=== PATIENT | female | born 1980 | race Caucasian/White ===

== ENCOUNTER 2016-11-14 15:34 | Emergency (ER) | payer MEDICAID, OTHER ==
[~2016-11-14] VITALS: Ht 167.6 cm; Wt 98.0 kg
[~2016-11-14 15:34] MED LIST: CYCL-36 PO; LORTA5 PO
[2016-11-14 15:37] VITALS: BP 123/73; PULSE 85; RESP 16; TEMP 98.3; O2SAT 98
[2016-11-14 16:09] LABS: BLOOD, URINE NEG (NEG); GLUCOSE,URINE NEG (NEG); KETONE, URINE NEG (NEG); NITRITE,URINE NEG (NEG)
[2016-11-14 16:14] LABS: METHOD OF COLLECTION CLEAN CATCH; URINE COLOR YELLOW (YELLW/STRAW)
[2016-11-14 16:15] LABS: BACTERIA, URINE MOD /hpf; COMMENT (UR) CULTURE INDICATED; CULTURE IF INDICATED CULTURE INDICATED; RBC, URINE 0-3 /hpf (0-3); SQUAMOUS EPITHELIAL CELL URINE 0-5 /hpf (0-5)
[2016-11-14] MEDS ORDERED: MACR100C2 PO (16:39)
[2016-11-14] MEDS ORDERED: METR250 PO (16:39)
[2016-11-14] MEDS ORDERED: DOXY100C PO (16:39)
--- NOTE | 2016-11-14 16:39 | PD ---
HPI Chief Complaint: Grab Hooker Problem/Complaint Time Seen by Provider: 15:58 Travel History International Travel<30 days: No Contact w/Intl Traveler<30days: No Traveled to known affect area: No History of Present Illness HPI 36-year-old female came to the emergency room with history of foul-smelling urine that has been cloudy in appearance for past 2 weeks. Also her ex was recently told that his partner was positive for chlamydia. Patient has had unprotected sex with him 3 weeks ago. She wanted to be checked for that as well. She has been getting some foul-smelling discharge vaginally as well. Vital signs were otherwise stable. PFSH Past Medical History Narrative Medical List of her past medical, surgical, social and family history was reviewed from the nursing note. Hx Anticoagulant Therapy: No Asthma: Yes Autoimmune Disease: No Blood Disorders: No Anxiety: No Depression: No Cancer: No Cardiovascular Problems: No Chemotherapy: No COPD: No Cerebrovascular Accident: No Diabetes: No Diminished Hearing: No Diverticulitis: Yes Endocrine: No Gastrointestinal Disorders: Yes (DIVERTICULITIS) Genitourinary: No Immune Disorder: No Implanted Vascular Access Dvce: No Musculoskeletal: No Neurologic: No Psychiatric: No Reproductive: No Respiratory: Yes (ASTHMA) Immunizations Current: Yes Sleep Apnea: No Influenza Vaccination: No ?: Not LMP: 10/31/2016-TL : 4 Para: 3 Miscarriage: 1 Ovarian Cysts: Yes (LEFT OVARY REMOVED) Tubal Ligation: Yes Past Surgical History Abdominal Surgery: Yes (LEFT OVARIAN CYST REMOVED) Section: Yes (X1 TO REMOVE LEFT OVARY) Cholecystectomy: Yes Gynecologic Surgery: Yes (LEFT OOPHERECTOMY) Hysterectomy: No Other Surgery: Yes (WRIST ) Social History Alcohol Use: Yes (occ.) Tobacco Use: Yes (1/2 PPD) Substance Use: No Allergies-Medications (Allergen,Severity, Reaction): Coded Allergies: Penicillin (Verified Allergy, Severe, HIVES, SWELLING, 11/14/16) Comments List of her allergies reviewed from the nursing note. Reported Meds & Prescriptions Reported Meds & Active Scripts Active Macrobid (Nitrofurantoin Monoh/Nitrofur Macro) 100 Mg Cap 100 Mg PO BID 7 Days Doxycycline Hyclate 100 Mg Cap 100 Mg PO BID 7 Days Flagyl (Metronidazole) 250 Mg Tab 250 Mg PO TID 7 Days Narrative Medication List of her home medications reviewed from the nursing note. Review of Systems Except as stated in HPI: all other systems reviewed are Neg Physical Exam Narrative GENERAL: Awake, alert, no obvious distress SKIN: Focused skin assessment warm/dry. HEAD: Atraumatic. Normocephalic. EYES: Pupils equal and round. No scleral icterus. No injection or drainage. ENT: No nasal bleeding or discharge. Mucous membranes pink and moist. NECK: Trachea midline. No JVD. CARDIOVASCULAR: Regular rate and rhythm. No murmur appreciated. RESPIRATORY: No accessory muscle use. Clear to auscultation. Breath sounds equal bilaterally. GASTROINTESTINAL: Abdomen soft, non-tender, nondistended. Hepatic and splenic margins not palpable. : Normal external inspection. Speculum exam showed yellowish color slightly foul-smelling discharge. CMT. No adnexal tenderness MUSCULOSKELETAL: No obvious deformities. No clubbing. No cyanosis. No edema. NEUROLOGICAL: Awake and alert. No obvious cranial nerve deficits. Motor grossly within normal limits. Normal speech. PSYCHIATRIC: Appropriate mood and affect; insight and judgment normal. Data Data Last Documented VS Orders Urinalysis - C+S If Indicated (11/14/16 15:39) Gc And Chlamydia Pcr (11/14/16 16:06) Wet Prep Profile (11/14/16 16:06) Urine Culture (11/14/16 15:45) Nitrofurantoin Monohyd Macrocr (Macrobid (11/14/16 16:45) Doxycycline (Vibratab) (11/14/16 16:45) Metronidazole (Flagyl) (11/14/16 16:45) Ceftriaxone Inj (Rocephin Inj) (11/14/16 16:45) Labs Laboratory Tests Test 11/14/16 15:45 Urine Collection Type CLEAN CATCH Urine Color YELLOW Urine Turbidity SLIGHTY CLOUDY Urine pH 6.0 Urine Specific [place] 1.018 Urine Protein NEG mg/dL Urine Glucose (UA) NEG mg/dL Urine Ketones NEG mg/dL Urine Occult Blood NEG Urine Nitrite NEG Urine Bilirubin NEG Urine Leukocyte Esterase TRACE Urine RBC 0-3 /hpf Urine WBC 9-14 /hpf Urine Squamous Epithelial 0-5 /hpf Cells Urine Bacteria MOD /hpf Microscopic Urinalysis Comment CULTURE INDICATED MDM Medical Decision Making Medical Screen Exam Complete: Yes Emergency Medical Condition: Yes Medical Record Reviewed: Yes Differential Diagnosis Vaginitis, cervicitis, UTI Narrative Course 4:37 PM UA suggestive of possible UTI and I have ordered a dose of Macrobid here. Given the exam as well as the exposure history I prefer to go ahead and treat the patient for STD. Medications were ordered. She'll go home on prescription. Procedures EKG Prior to Arrival: No Diagnosis Primary Impression: UTI (urinary tract infection) Qualified Code: N39.0 - Urinary tract infection without hematuria, site unspecified Additional Impression: PID (acute pelvic inflammatory disease) Referrals: Primary Care Physician 1 week Additional Instructions: Please return to the ER if the condition worsens or any other new concerns. Please take the medication as per the prescription direction. Do not have unprotected sex for the next 2-3 weeks. Med/Other Pt SpecificInfo: Prescription(s) given Scripts Nitrofurantoin Monohydrate Macrocrystals (Macrobid)100 Mg [id number] Mg PO BID 7 Days Ref 0 Prov:Eloina Auguste MD 11/14/16 Doxycycline Hyclate 100 Mg [id number] Mg PO BID 7 Days Ref 0 Prov:Eloina Auguste MD 11/14/16 Metronidazole (Flagyl)250 Mg [id number] Mg PO TID 7 Days Ref 0 Prov:Eloina Auguste MD 11/14/16 Disposition: 01 DISCHARGE HOME Condition: Stable Eloina Auguste MD Nov 14, 2016 16:39 Eloina Auguste MD Nov 14, 2016 16:39
[2016-11-14] MEDS ORDERED: cefTRIAXone 250 MG VIAL IM ONE (16:45)
[2016-11-14] MEDS ORDERED: NITROFURANTOIN MONOHYD MACROCR 100 MG CAP PO ONE (16:45)
[2016-11-14] MEDS ORDERED: DOXYCYCLINE HYCLATE 100 MG TAB PO ONE (16:45)
[2016-11-14] MEDS ORDERED: metroNIDAZOLE 500 MG TAB PO ONE (16:45)
[2016-11-14 17:23] VITALS: BP 120/70; PULSE 80; RESP 16; O2SAT 99
[2016-11-14 19:13] LABS: CHLAMYDIA PCR NOT DETECTED (NOT DETECT); NEISSERIA PCR NOT DETECTED (NOT DETECT)
== END 2016-11-14 17:24 | disposition home or self-care (01) ==
LOC: PHED 15:34
DX: N39.0 Urinary tract infection, site not specified (principal); N73.9 Female pelvic inflammatory disease, unspecified; B96.20 Unspecified Escherichia coli [E. coli] as the cause of diseases classified elsewhere; F17.200 Nicotine dependence, unspecified, uncomplicated; Z87.09 Personal history of other diseases of the respiratory system; Z87.19 Personal history of other diseases of the digestive system
CPT/HCPCS: 81001; 87077; 87086; 87186; 87210; 87491; 87591; 96372; 99283; J0696

== ENCOUNTER 2017-06-17 17:13 | Emergency (ER) | payer MEDICAID ==
[~2017-06-17] VITALS: Ht 167.6 cm; Wt 97.5 kg
[~2017-06-17 17:13] MED LIST changes: -CYCL-36 PO; +DOXY100C PO; -LORTA5 PO; +MACR100C2 PO; +METR250 PO
[2017-06-17 17:25] VITALS: BP 127/75; PULSE 80; RESP 18; TEMP 98.2; O2SAT 98
--- NOTE | 2017-06-17 19:43 | RADRPT ---
EXAM DATE/TIME: 06/17/2017 18:25 [facility] COMPARISON: No previous studies available for comparison. INDICATIONS : Knee pain. MEDICAL HISTORY : None. SURGICAL HISTORY : None. ENCOUNTER: Initial ACUITY: 1 day PAIN SCORE: 6/10 LOCATION: Left knee. FINDINGS: 4 view examination of the knee demonstrates mild degenerative changes in the medial lateral compartme nt with mild osteophyte formation. The patellofemoral articulation is intact. No fractures seen. N o radiopaque foreign bodies. The suprapatellar soft tissues are normal in thickness. CONCLUSION: Mild degenerative changes. No evidence of recent bony injury. Hitesh Stanford MD on June 17, 2017 at 19:41 Board Certified Radiologist. This report was verified electronically.
[2017-06-17] MEDS ORDERED: NAPR500T2 PO (19:45)
--- NOTE | 2017-06-17 19:46 | PD ---
HPI . Left knee pain Chief Complaint: Injury Time Seen by Provider: 17:40 Travel History International Travel<30 days: No Contact w/Intl Traveler<30days: No Traveled to known affect area: No History of Present Illness HPI 37 year old female patient presents to the emergency department for evaluation of left knee pain that started this morning when she fell down steps. Patient denies any other injury during this fall. Patient denies hitting her head or losing consciousness. She has been ambulatory since the fall working today which she states is painful to flex the knee. Patient has a fever, chills, malaise, shortness breath, chest pain, abdominal pain, nausea, vomiting, diarrhea. PFSH Past Medical History Hx Anticoagulant Therapy: No Asthma: Yes Autoimmune Disease: No Blood Disorders: No Anxiety: No Depression: No Cancer: No Cardiovascular Problems: No Chemotherapy: No COPD: No Cerebrovascular Accident: No Diabetes: No Diminished Hearing: No Diverticulitis: Yes Endocrine: No Gastrointestinal Disorders: Yes (DIVERTICULITIS) Genitourinary: No Immune Disorder: No Implanted Vascular Access Dvce: No Musculoskeletal: No Neurologic: No Psychiatric: No Reproductive: No Respiratory: Yes (ASTHMA) Immunizations Current: Yes Sleep Apnea: No ?: Not : 4 Para: 3 Miscarriage: 1 Ovarian Cysts: Yes (LEFT OVARY REMOVED) Tubal Ligation: Yes Past Surgical History Abdominal Surgery: Yes (LEFT OVARIAN CYST REMOVED) Section: Yes (X1 TO REMOVE LEFT OVARY) Cholecystectomy: Yes Gynecologic Surgery: Yes (LEFT OOPHERECTOMY) Hysterectomy: No Other Surgery: Yes (WRIST ) Social History Alcohol Use: Yes (occ.) Tobacco Use: Yes (1/2 PPD) Substance Use: No Allergies-Medications (Allergen,Severity, Reaction): Coded Allergies: penicillin G (Unverified Allergy, Severe, HIVES, SWELLING, 06/17/17) Reported Meds & Prescriptions Reported Meds & Active Scripts Active Naproxen 500 Mg Tab 500 Mg PO BID Review of Systems Except as stated in HPI: all other systems reviewed are Neg Physical Exam Narrative GENERAL: Well-nourished, well-developed 37-year-old female patient in no acute distress. Nontoxic appearing. SKIN: Focused skin assessment warm/dry. HEAD: Normocephalic. Atraumatic. EYES: No scleral icterus. No injection or drainage. NECK: Supple, trachea midline. No JVD or lymphadenopathy. CARDIOVASCULAR: Regular rate and rhythm without murmurs, gallops, or rubs. Pedal pulses +2 bilaterally. RESPIRATORY: Breath sounds equal bilaterally. No accessory muscle use. GASTROINTESTINAL: Abdomen soft, non-tender, nondistended. MUSCULOSKELETAL: No obvious deformity, ecchymosis, cyanosis, erythema cyanosis, or edema. Limited range of motion with flexion of left knee, full range of motion with extension of left knee. BACK: Nontender without obvious deformity. No CVA tenderness. Data Data Last Documented VS Vital Signs Date Time Temp Pulse Resp B/P (MAP) Pulse Ox O2 Delivery O2 Flow Rate FiO2 06/17/17 20:07 06/17/17 17:25 98.2 80 18 98 Room Air Orders Orders Knee, Complete (4vws) (06/17/17 17:43) Ice/Cold Pack (06/17/17 17:43) Ed Discharge Order (06/17/17 19:47) Splint Or Brace Apply/Monitor (06/17/17 19:47) Orphenadrine Inj (Norflex Inj) (06/17/17 20:00) Ketorolac Inj (Toradol Inj) (06/17/17 20:00) Crutches (06/17/17 19:51) MDM Medical Decision Making Medical Screen Exam Complete: Yes Emergency Medical Condition: Yes Differential Diagnosis Differential diagnoses include but not limited to patellar dislocation, patellar fracture, knee contusion, knee strain, knee sprain Narrative Course 37 year female presents emergency department for evaluation of left knee pain that started this morning which got ounces. X-ray of the left knee ordered and pending. Ice applied to the left knee. X-ray shows mild degenerative changes with no evidence of bony injury. She given an IM injection of Toradol and Norflex and discharged home with rice therapy instructions. Patient instructed to return the emergency Department with any worsening condition but otherwise follow-up with primary care. Last Impressions Knee X-Ray 06/17/17 [id number] Signed Impressions: Service Date/Time: Saturday, June 17, 2017 18:25 - CONCLUSION: Mild degenerative changes. No evidence of recent bony injury. Hitesh Stanford MD Diagnosis Primary Impression: Knee pain, left Qualified Codes: M25.562 - Pain in left knee Referrals: Primary Care Physician Patient Instructions: General Instructions, Knee Pain (ED) Additional Instructions: Please return to emergency department if your symptoms return or worsen. Follow up with your primary care provider. Take medications as prescribed. Rice therapy to left knee, rest, ice, Bradley wrap with activity and elevated resting. Med/Other Pt SpecificInfo: Prescription(s) given Scripts Naproxen (Naproxen) 500 Mg Tab 500 MG PO BID, #14 TAB 0 Refills Prov: Blank Becker 06/17/17 Disposition: 01 DISCHARGE HOME Condition: Stable Blank Becker Jun 17, 2017 19:46
[2017-06-17] MEDS ORDERED: KETOROLAC TROMETHAMINE 60 MG/2 ML (IM) VIAL IM ONE (20:00)
[2017-06-17] MEDS ORDERED: ORPHENADRINE INJ 60 MG/2 ML AMP IM ONE (20:00)
== END 2017-06-17 20:10 | disposition home or self-care (01) ==
LOC: PHEFT 17:13
DX: M25.562 Pain in left knee (principal)
CPT/HCPCS: 73564; 96372; 99284; E0113; J1885; J2360